=== PATIENT | male | born 1950 ===

== ENCOUNTER → 2018-01-09 | Outpatient (CLI) | payer MEDICARE, OTHER ==
[~2018-01-09] VITALS: Ht 170.2 cm; Wt 82.5 kg
[~2018-01-09] MED LIST: AMOX-429 PO; BENZ-51 PO; DOXY100C PO; FLUC200T PO; GLIP5 PO; INSLAN SQ; LACT1CAP70 PO; LEVO150 PO; PRED20 PO; RIVA20TA PO; SOTA80 PO
[2018-01-09 13:23] VITALS: BP 96/65
== END | disposition home or self-care (01) ==
LOC: SRCNTR 12:24
PROVIDERS: ATTEND Internal Medicine Critical Care Medicine
DX: A41.9 Sepsis, unspecified organism (principal); J18.9 Pneumonia, unspecified organism; E11.9 Type 2 diabetes mellitus without complications; E03.9 Hypothyroidism, unspecified; I48.91 Unspecified atrial fibrillation
CPT/HCPCS: G0463

== ENCOUNTER → 2018-01-29 | Outpatient (CLI) | payer MEDICARE, OTHER ==
[~2018-01-29] VITALS: Ht 170.2 cm; Wt 80.0 kg
[2018-01-29 13:15] VITALS: BP 116/72
== END | disposition home or self-care (01) ==
LOC: SRCNTR 13:12
PROVIDERS: ATTEND Internal Medicine Critical Care Medicine
DX: B38.2 Pulmonary coccidioidomycosis, unspecified (principal); E11.9 Type 2 diabetes mellitus without complications; I10 Essential (primary) hypertension; E03.9 Hypothyroidism, unspecified; I48.91 Unspecified atrial fibrillation
CPT/HCPCS: G0463

== ENCOUNTER → 2018-05-05 | Outpatient (CLI) | payer MEDICARE, OTHER ==
[~2018-05-05] VITALS: Ht 170.2 cm; Wt 85.0 kg
[2018-05-05 13:37] VITALS: BP 129/79
== END | disposition home or self-care (01) ==
LOC: SRCNTR 12:52
PROVIDERS: ATTEND Internal Medicine Critical Care Medicine
DX: B38.2 Pulmonary coccidioidomycosis, unspecified (principal); E11.9 Type 2 diabetes mellitus without complications; E03.9 Hypothyroidism, unspecified; I48.91 Unspecified atrial fibrillation; I10 Essential (primary) hypertension
CPT/HCPCS: G0463

== ENCOUNTER → 2018-07-31 | Outpatient (CLI) | payer MEDICARE, OTHER ==
[~2018-07-31] VITALS: Ht 170.2 cm; Wt 85.0 kg
[2018-07-31 15:10] VITALS: BP 139/73
== END | disposition home or self-care (01) ==
LOC: SRCNTR 15:04
PROVIDERS: ATTEND Internal Medicine Critical Care Medicine
DX: B38.2 Pulmonary coccidioidomycosis, unspecified (principal); E11.9 Type 2 diabetes mellitus without complications; I10 Essential (primary) hypertension; E03.9 Hypothyroidism, unspecified; I48.91 Unspecified atrial fibrillation
CPT/HCPCS: G0463

== ENCOUNTER → 2019-01-02 | Outpatient (CLI) | payer MEDICARE, OTHER ==
[~2019-01-02] VITALS: Ht 170.2 cm; Wt 87.0 kg
[~2019-01-02] MED LIST changes: +SITA100 PO
[2019-01-02 13:11] VITALS: BP 134/90
== END | disposition home or self-care (01) ==
LOC: SRCNTR 12:59
PROVIDERS: ATTEND Internal Medicine Critical Care Medicine
DX: J15.9 Unspecified bacterial pneumonia (principal); E11.9 Type 2 diabetes mellitus without complications; I10 Essential (primary) hypertension; E03.9 Hypothyroidism, unspecified; I48.91 Unspecified atrial fibrillation
CPT/HCPCS: G0463